=== PATIENT | female | born 1980 | race Caucasian/White ===

== ENCOUNTER 2016-10-07 16:52 | Emergency (ER) | payer OTHER ==
[2016-10-07 22:16] LABS: HEMOGLOBIN 12.4 gm/dl (12.3-15.3); RED BLOOD COUNT 4.15 M/UL (4.00-5.10); WHITE BLOOD COUNT 11.4 K/UL (4.5-11.0)
[2016-10-07 22:52] LABS: BUN/CREATININE RATIO 18 (0-10)
[2016-10-09] MEDS ORDERED: ETODOLAC400 MG PO (17:10)
[2016-10-09] MEDS ORDERED: ZOFRAN4 MG PO (17:10)
== END 2016-10-08 02:25 | disposition home or self-care (01) ==
LOC: ER1 16:52
PROVIDERS: Physician Assistant
DX: R07.2 Precordial pain (principal); R06.02 Shortness of breath; R11.2 Nausea with vomiting, unspecified; R05 Cough; R61 Generalized hyperhidrosis; I10 Essential (primary) hypertension; Z90.49 Acquired absence of other specified parts of digestive tract; Z88.2 Allergy status to sulfonamides; Z88.8 Allergy status to other drugs, medicaments and biological substances
CPT/HCPCS: 36415; 71020; 80053; 81001; 82550; 82553; 83874; 84484; 84703; 85025; 85379; 87081; 87880; 93005; 96361; 96374; 96375; 99285; J1885; J2405; Q0162

== ENCOUNTER 2016-10-09 02:42 | Observation (INO) | payer OTHER ==
[~2016-10-09] VITALS: Ht 162.6 cm; Wt 113.4 kg
[2016-10-09 04:24] LABS: HEMOGLOBIN 12.9 gm/dl (12.3-15.3); RED BLOOD COUNT 4.28 M/UL (4.00-5.10)
[2016-10-09 04:25] LABS: WHITE BLOOD COUNT 21.3 K/UL (4.5-11.0)
[2016-10-09 04:53] LABS: BUN/CREATININE RATIO 18 (0-10)
[2016-10-09] MEDS ORDERED: ETODOLAC400 MG PO (17:10)
[2016-10-09] MEDS ORDERED: ZOFRAN4 MG PO (17:10)
[2016-10-10 04:25] LABS: HEMOGLOBIN 10.9 gm/dl (12.3-15.3); RED BLOOD COUNT 3.6 M/UL (4.00-5.10); WHITE BLOOD COUNT 12.3 K/UL (4.5-11.0)
[2016-10-10 04:36] LABS: BUN/CREATININE RATIO 16 (0-10)
[2016-10-10] MEDS ORDERED: LEVAQUIN750 MG PO (12:36)
== END 2016-10-10 14:46 | disposition home or self-care (01) ==
LOC: ER1 02:42 → MED SURG 4 10:48 → ZEROF 10:48 → MED SURG 4 13:08
PROVIDERS: Family Medicine; ADMIT Emergency Medicine
DX: J18.9 Pneumonia, unspecified organism (principal); E87.2 Acidosis; E87.6 Hypokalemia; D72.829 Elevated white blood cell count, unspecified; E66.9 Obesity, unspecified; Z79.899 Other long term (current) drug therapy; Z90.49 Acquired absence of other specified parts of digestive tract; Z88.2 Allergy status to sulfonamides; Z88.8 Allergy status to other drugs, medicaments and biological substances; Z82.49 Family history of ischemic heart disease and other diseases of the circulatory system; Z83.3 Family history of diabetes mellitus
CPT/HCPCS: 36415; 71010; 80048; 80053; 81001; 82550; 82553; 83605; 83690; 83735; 83874; 84484; 85025; 85379; 87040; 87086; 93005; 94664; 96361; 96365; 96367; 96375; 96376; 99285; C9113; G0378; J1956; J2270; J2405; J2543; J2550; J7030; J7050; Q9963

== ENCOUNTER 2016-10-19 18:19 | Emergency (ER) | payer OTHER ==
[~2016-10-19 18:19] MED LIST: ETODOLAC400 MG PO; LEVAQUIN750 MG PO; ZOFRAN4 MG PO
[2016-10-19 21:11] LABS: HEMOGLOBIN 12.9 gm/dl (12.3-15.3); RED BLOOD COUNT 4.38 M/UL (4.00-5.10); WHITE BLOOD COUNT 14.9 K/UL (4.5-11.0)
[2016-10-19 21:41] LABS: BUN/CREATININE RATIO 20 (0-10)
== END 2016-10-20 03:39 ==
LOC: ER1 18:19
PROVIDERS: Emergency Medicine
DX: R00.0 Tachycardia, unspecified (principal); J06.9 Acute upper respiratory infection, unspecified; R59.0 Localized enlarged lymph nodes; D72.829 Elevated white blood cell count, unspecified; Z90.49 Acquired absence of other specified parts of digestive tract; Z88.2 Allergy status to sulfonamides; Z88.8 Allergy status to other drugs, medicaments and biological substances
CPT/HCPCS: 36415; 71010; 80053; 82550; 82553; 83874; 84484; 84703; 85025; 85379; 87040; 93005; 94640; 94664; 96361; 96365; 96375; 99285; J1956; J2405; J2543; J2550; J3370; J7050; Q9963

== ENCOUNTER → 2016-11-12 | Outpatient (CLI) | payer OTHER ==
[~2016-11-12] VITALS: Ht 162.6 cm; Wt 112.0 kg
== END ==
LOC: OPSV 13:46
DX: B96.89 Other specified bacterial agents as the cause of diseases classified elsewhere (principal); A49.1 Streptococcal infection, unspecified site; R22.2 Localized swelling, mass and lump, trunk
CPT/HCPCS: 96365; J0696; J1642

== ENCOUNTER → 2016-11-13 | Outpatient (CLI) | payer OTHER ==
[~2016-11-13] VITALS: Ht 162.6 cm; Wt 112.0 kg
== END ==
LOC: OPSV 07:42
DX: A49.1 Streptococcal infection, unspecified site (principal); B96.89 Other specified bacterial agents as the cause of diseases classified elsewhere; R22.2 Localized swelling, mass and lump, trunk
CPT/HCPCS: 96365; J0696; J1642

== ENCOUNTER → 2016-11-14 | Outpatient (CLI) | payer OTHER ==
[~2016-11-14] VITALS: Ht 162.6 cm; Wt 112.0 kg
== END ==
LOC: OPSV 08:30
DX: A49.1 Streptococcal infection, unspecified site (principal); R22.2 Localized swelling, mass and lump, trunk
CPT/HCPCS: 96365; J0696; J1642

== ENCOUNTER → 2016-11-15 | Outpatient (CLI) | payer SELFPAY ==
[~2016-11-15] VITALS: Ht 162.6 cm; Wt 112.0 kg
[2016-11-15 16:09] LABS: HEMOGLOBIN 11.8 gm/dl (12.3-15.3); RED BLOOD COUNT 4.01 M/UL (4.00-5.10); WHITE BLOOD COUNT 7.3 K/UL (4.5-11.0)
[2016-11-15 16:29] LABS: BUN/CREATININE RATIO 17 (0-10)
== END ==
LOC: OPSV 14:59
PROVIDERS: Internal Medicine Infectious Disease
DX: A49.1 Streptococcal infection, unspecified site (principal); B96.89 Other specified bacterial agents as the cause of diseases classified elsewhere; R59.0 Localized enlarged lymph nodes; R22.2 Localized swelling, mass and lump, trunk; E66.01 Morbid (severe) obesity due to excess calories
CPT/HCPCS: 36415; 80053; 85025; 86140; 96365; J0696; J1642

== ENCOUNTER → 2016-11-16 | Outpatient (CLI) | payer SELFPAY ==
[~2016-11-16] VITALS: Ht 162.6 cm; Wt 112.0 kg
== END ==
LOC: OPSV 14:45
DX: R22.2 Localized swelling, mass and lump, trunk (principal); B96.89 Other specified bacterial agents as the cause of diseases classified elsewhere; A49.1 Streptococcal infection, unspecified site
CPT/HCPCS: 96365; J0696; J1642

== ENCOUNTER → 2016-11-17 | Outpatient (CLI) | payer SELFPAY ==
[~2016-11-17] VITALS: Ht 162.6 cm; Wt 112.0 kg
== END ==
LOC: OPSV 14:23
DX: B96.89 Other specified bacterial agents as the cause of diseases classified elsewhere (principal); A49.1 Streptococcal infection, unspecified site; R22.2 Localized swelling, mass and lump, trunk
CPT/HCPCS: 96365; J0696; J1642

== ENCOUNTER → 2016-11-18 | Outpatient (CLI) | payer OTHER | LOC: OPSV 14:58 | DX: R22.2 Localized swelling, mass and lump, trunk (principal); A49.1 Streptococcal infection, unspecified site | CPT/HCPCS: 96365; J0696; J1642 ==

== ENCOUNTER → 2016-11-19 | Outpatient (CLI) | payer OTHER ==
[~2016-11-19] VITALS: Ht 162.6 cm; Wt 112.0 kg
== END ==
LOC: OPSV 15:07
DX: B96.89 Other specified bacterial agents as the cause of diseases classified elsewhere (principal); A49.1 Streptococcal infection, unspecified site; R22.2 Localized swelling, mass and lump, trunk
CPT/HCPCS: 96365; J0696; J1642

== ENCOUNTER → 2016-11-20 | Outpatient (CLI) | payer OTHER ==
[~2016-11-20] VITALS: Ht 162.6 cm; Wt 112.0 kg
== END ==
LOC: OPSV 07:27
DX: A49.1 Streptococcal infection, unspecified site (principal); B96.89 Other specified bacterial agents as the cause of diseases classified elsewhere; R22.2 Localized swelling, mass and lump, trunk
CPT/HCPCS: 96365; J0696; J1642

== ENCOUNTER → 2016-11-21 | Outpatient (CLI) | payer OTHER ==
[~2016-11-21] VITALS: Ht 162.6 cm; Wt 112.0 kg
== END ==
LOC: OPSV 07:26
DX: A49.1 Streptococcal infection, unspecified site (principal); B96.89 Other specified bacterial agents as the cause of diseases classified elsewhere; R22.2 Localized swelling, mass and lump, trunk
CPT/HCPCS: 96365; J0696; J1642

== ENCOUNTER → 2016-11-22 | Outpatient (CLI) | payer OTHER ==
[~2016-11-22] VITALS: Ht 162.6 cm; Wt 112.0 kg
[2016-11-22 15:40] LABS: HEMOGLOBIN 11.6 gm/dl (12.3-15.3); RED BLOOD COUNT 3.98 M/UL (4.00-5.10); WHITE BLOOD COUNT 5.7 K/UL (4.5-11.0)
[2016-11-22 16:08] LABS: BUN/CREATININE RATIO 17 (0-10)
== END ==
LOC: OPSV 14:47
PROVIDERS: Internal Medicine Infectious Disease
DX: A49.1 Streptococcal infection, unspecified site (principal); R59.0 Localized enlarged lymph nodes; R22.2 Localized swelling, mass and lump, trunk; E66.01 Morbid (severe) obesity due to excess calories; B96.89 Other specified bacterial agents as the cause of diseases classified elsewhere
CPT/HCPCS: 36415; 80053; 85025; 86140; 96365; J0696; J1642

== ENCOUNTER → 2016-11-23 | Outpatient (CLI) | payer OTHER ==
[~2016-11-23] VITALS: Ht 162.6 cm; Wt 112.0 kg
== END ==
LOC: OPSV 14:52
DX: A49.1 Streptococcal infection, unspecified site (principal); B96.89 Other specified bacterial agents as the cause of diseases classified elsewhere; R22.2 Localized swelling, mass and lump, trunk
CPT/HCPCS: 96365; J0696; J1642

== ENCOUNTER → 2016-11-24 | Outpatient (CLI) | payer OTHER ==
[~2016-11-24] VITALS: Ht 162.6 cm; Wt 112.0 kg
== END ==
LOC: OPSV 08:55
DX: A49.1 Streptococcal infection, unspecified site (principal); B96.89 Other specified bacterial agents as the cause of diseases classified elsewhere; R22.2 Localized swelling, mass and lump, trunk
CPT/HCPCS: 96365; J0696; J1642

== ENCOUNTER → 2016-11-25 | Outpatient (CLI) | payer OTHER | LOC: OPSV 14:55 | DX: A49.1 Streptococcal infection, unspecified site (principal); R22.2 Localized swelling, mass and lump, trunk; B96.89 Other specified bacterial agents as the cause of diseases classified elsewhere | CPT/HCPCS: 96365; J0696; J1642 ==

== ENCOUNTER → 2016-11-26 | Outpatient (CLI) | payer OTHER ==
[~2016-11-26] VITALS: Ht 162.6 cm; Wt 112.0 kg
== END ==
LOC: OPSV 15:00
DX: R59.0 Localized enlarged lymph nodes (principal); R22.2 Localized swelling, mass and lump, trunk; B95.4 Other streptococcus as the cause of diseases classified elsewhere
CPT/HCPCS: 96365; J0696; J1642

== ENCOUNTER → 2016-11-27 | Outpatient (CLI) | payer OTHER ==
[~2016-11-27] VITALS: Ht 162.6 cm; Wt 112.0 kg
== END ==
LOC: OPSV 08:20
DX: R59.0 Localized enlarged lymph nodes (principal); B95.4 Other streptococcus as the cause of diseases classified elsewhere; R22.2 Localized swelling, mass and lump, trunk
CPT/HCPCS: 96365; J0696; J1642

== ENCOUNTER → 2016-11-28 | Outpatient (CLI) | payer OTHER ==
[~2016-11-28] VITALS: Ht 162.6 cm; Wt 112.0 kg
== END ==
LOC: OPSV 08:29
DX: R22.2 Localized swelling, mass and lump, trunk (principal); B95.4 Other streptococcus as the cause of diseases classified elsewhere
CPT/HCPCS: 96365; J0696; J1642

== ENCOUNTER → 2016-11-29 | Outpatient (CLI) | payer OTHER ==
[~2016-11-29] VITALS: Ht 162.6 cm; Wt 112.0 kg
[2016-11-29 15:34] LABS: HEMOGLOBIN 11.5 gm/dl (12.3-15.3); RED BLOOD COUNT 3.99 M/UL (4.00-5.10); WHITE BLOOD COUNT 3.2 K/UL (4.5-11.0)
[2016-11-29 15:49] LABS: BUN/CREATININE RATIO 20 (0-10)
== END ==
LOC: OPSV 14:45
PROVIDERS: Internal Medicine Infectious Disease
DX: R22.2 Localized swelling, mass and lump, trunk (principal); E66.01 Morbid (severe) obesity due to excess calories; B96.89 Other specified bacterial agents as the cause of diseases classified elsewhere; A49.1 Streptococcal infection, unspecified site
CPT/HCPCS: 36415; 80053; 85025; 86140; 96365; J0696; J1642

== ENCOUNTER → 2016-11-30 | Outpatient (CLI) | payer OTHER ==
[~2016-11-30] VITALS: Ht 162.6 cm; Wt 112.0 kg
== END ==
LOC: OPSV 14:13
DX: R59.0 Localized enlarged lymph nodes (principal); R22.2 Localized swelling, mass and lump, trunk; B95.4 Other streptococcus as the cause of diseases classified elsewhere
CPT/HCPCS: 96365; J0696; J1642

== ENCOUNTER 2016-12-01 14:16 | Emergency (ER) | payer OTHER ==
[2016-12-01 19:02] LABS: RED BLOOD COUNT 3.8 M/UL (4.00-5.10)
[2016-12-01 19:08] LABS: BUN/CREATININE RATIO 24 (0-10)
[2016-12-01 19:10] LABS: WHITE BLOOD COUNT 1.9 K/UL (4.5-11.0)
== END 2016-12-01 21:10 | disposition home or self-care (01) ==
LOC: ER1 14:16
PROVIDERS: Emergency Medicine
DX: T36.1X5A Adverse effect of cephalosporins and other beta-lactam antibiotics, initial encounter (principal); Z88.2 Allergy status to sulfonamides; Z88.8 Allergy status to other drugs, medicaments and biological substances; X58.XXXA Exposure to other specified factors, initial encounter
CPT/HCPCS: 36415; 71010; 80053; 81001; 82550; 82553; 83605; 83874; 84484; 85025; 87040; 87086; 99284

== ENCOUNTER → 2016-12-03 | Outpatient (CLI) | payer OTHER ==
[2016-12-03 09:55] LABS: HEMOGLOBIN 10.4 gm/dl (12.3-15.3); RED BLOOD COUNT 3.65 M/UL (4.00-5.10)
[2016-12-03 10:00] LABS: WHITE BLOOD COUNT 3.6 K/UL (4.5-11.0)
== END ==
LOC: OPSV 09:11 → CT 09:11
PROVIDERS: Family Medicine
DX: R91.1 Solitary pulmonary nodule (principal); R59.0 Localized enlarged lymph nodes; B95.4 Other streptococcus as the cause of diseases classified elsewhere
CPT/HCPCS: 36415; 71260; 85027; J1642; J7050; Q9962